=== PATIENT | female | born 1985 | race Caucasian/White ===

== ENCOUNTER → 2018-06-08 | Outpatient (CLI) | payer OTHER ==
--- NOTE | 2018-06-08 12:39 | Diagnostic Imaging Report ---
EXAM: CHEST 2 VIEWS, PA and lateral DATE: 06/08/2018 11:55 AM Time stamp on exam: 12:14 PM INDICATION: Physical COMPARISON: None FINDINGS: LINES/TUBES: None LUNGS: No consolidations or edema. Scattered calcified granulomas within the left lung. PLEURA: No effusions or pneumothorax. HEART AND MEDIASTINUM: Normal size and contour. BONES AND SOFT TISSUES: No acute findings. IMPRESSION: No acute thoracic abnormality. Signed by: Dr. Mike Cee DO on 06/08/2018 12:35 PM
== END ==
LOC: RAD 11:48
PROVIDERS: ATTEND Internal Medicine
DX: Z00.00 Encounter for general adult medical examination without abnormal findings (principal)
CPT/HCPCS: 71046

== ENCOUNTER → 2019-01-25 | Outpatient (CLI) | payer OTHER ==
--- NOTE | 2019-01-25 13:03 | Diagnostic Imaging Report ---
Exam: Chest radiograph Clinical History: Cardiomyopathy Comparison: June 08, 2018 Findings: The cardiomediastinal silhouette and lungs are normal. The regional skeleton and soft tissue are unremarkable. There is no evidence of pleural effusion or pneumothorax. Subcentimeter calcified granuloma is noted in the left upper lobe. Impression: No radiographic evidence of acute cardiopulmonary disease. Signed by: Dr. Les Spangler MD on 01/25/2019 1:00 PM
== END ==
LOC: RAD 11:48
PROVIDERS: ATTEND Internal Medicine
DX: O90.3 Peripartum cardiomyopathy (principal)
CPT/HCPCS: 71046